=== PATIENT | male | born 1990 | race Two or more races ===

== ENCOUNTER 2023-11-22 10:54 | Emergency (ER) | payer OTHER ==
[~2023-11-22] VITALS: Ht 185.4 cm; Wt 90.9 kg
[2023-11-22 11:00] VITALS: TEMP 98.4
[2023-11-22] MEDS: PROCHLORPERAZINE EDISYLATE 5 MG/ML 2 ML VIAL IVP ONE (11:43)
[2023-11-22] MEDS: KETOROLAC TROMETHAMINE 30 MG/ML VIAL IVP ONE (11:43)
[2023-11-22] MEDS: DiphenhydrAMINE HCL 50 MG/ML VIAL IVP ONE (11:44)
[2023-11-22] MEDS: SODIUM CHLORIDE 0.9% 1,000 ML IV ONE (11:44)
[2023-11-22] MEDS: ACETAMINOPHEN 325 MG TABLET PO ONE (11:44)
[2023-11-22 13:00] VITALS: BP 110/60; PULSE 60; RESP 18
== END 2023-11-22 13:14 | disposition home or self-care (01) ==
LOC: EMS 10:56
DX: R51.9 Headache, unspecified (principal); F17.210 Nicotine dependence, cigarettes, uncomplicated
CPT/HCPCS: 99284; 96374; 96375; 96361; J1200; J1885; J0780